=== PATIENT | male | born 1990 | race Caucasian/White ===

== ENCOUNTER 2019-10-07 17:47 | Emergency (ER) | payer SELFPAY ==
[~2019-10-07] VITALS: Ht 175.3 cm; Wt 104.0 kg
[2019-10-07 19:25] LABS: CHLORIDE 106 mEq/L (98-107)
[2019-10-07 21:46] VITALS: BP 150/89
== END 2019-10-07 21:47 | disposition home or self-care (01) ==
LOC: ER 17:47
DX: F10.129 Alcohol abuse with intoxication, unspecified (principal); Y90.9 Presence of alcohol in blood, level not specified
CPT/HCPCS: 36415; 80048; 99283